=== PATIENT | female | born 1990 | race Caucasian/White ===

== ENCOUNTER 2016-06-15 14:29 | Outpatient (CLI) | payer MEDICAID | END 2016-06-15 14:30 | disposition home or self-care (01) | DX: M25.561 Pain in right knee (principal) ==

== ENCOUNTER 2016-06-20 13:34 | Outpatient (CLI) | payer MEDICAID | END 2016-06-20 13:35 | disposition home or self-care (01) | DX: M23.91 Unspecified internal derangement of right knee (principal); M25.461 Effusion, right knee; M25.561 Pain in right knee ==

== ENCOUNTER 2016-09-23 09:28 | Emergency (ER) | payer MEDICAID ==
[2016-09-23] MEDS ORDERED: SODIUM CHLORIDE 0.65% NASAL SPRAY NAS STA (09:59)
[2016-09-23] MEDS ORDERED: DEXAMETHASONE 10 MG/ML VIAL PO STA (09:59)
[2016-09-23] MEDS ORDERED: CHERRY SYRUP 10 ML UDC PO ONE (10:01)
[2016-09-23] MEDS ORDERED: DEXAMETHASONE 10 MG/ML VIAL ONE (10:01)
== END 2016-09-23 10:57 | disposition home or self-care (01) ==
DX: J39.2 Other diseases of pharynx (principal)
CPT/HCPCS: 87070; 87430; 99283; A9270